=== PATIENT | female | born 1970 | race Caucasian/White ===

== ENCOUNTER → 2020-05-25 14:53 | Outpatient (CLI) | payer MEDICARE, SELFPAY ==
[2020-05-25 16:46] LABS: Alanine Aminotransferase 16 IU/L (<35); Albumin 3.8 g/dL (3.5-5.0); Albumin Globulin Ratio 1.4 (1.0-2.8); Alkaline Phosphatase 85 U/L (38-126); Aspartate Aminotransferase 22 IU/L (14-36); BUN Creatinine Ratio 16.7 (6-22); Bilirubin Total 0.4 mg/dL (0.2-1.3); Blood Urea Nitrogen 15 mg/dL (7-17); Calcium 9.1 mg/dL (8.4-10.2); Carbon Dioxide 29 mmol/L (22-32); Chloride 103 mmol/L (98-107); Estimated Glomerular Filt Rate > 60.0 mL/min (>60); Globulin 2.8 g/dL (1.7-4.1); Glucose 85 mg/dL (70-100); HEMOLYSIS < 15 (0-50); Potassium 3.9 mmol/L (3.4-5.1); Sodium 138 mmol/L (137-145); Total Protein 6.6 g/dL (6.3-8.2)
[2020-05-25 17:05] LABS: Free T4, Direct Thyroxine 0.93 ng/dL (0.78-2.19)
[2020-05-25 17:19] LABS: Thyroid Stimulating Hormone 1.67 uIU/mL (0.47-4.68)
[2020-05-28 10:09] LABS: Lamotrigine Lamictal 1.4 ug/mL (2.0-20.0)
== END ==
PROVIDERS: Referring Provider Psychiatry & Neurology Psychiatry; Visit Provider Psychiatry & Neurology Psychiatry
DX: F31.10 Bipolar disorder, current episode manic without psychotic features, unspecified (principal)
CPT/HCPCS: 36415; 80053; 80175; 84439; 84443

== ENCOUNTER → 2022-12-12 15:14 | Outpatient (CLI) | payer MEDICARE, SELFPAY | PROVIDERS: PCP Internal Medicine; Referring Provider Psychiatry & Neurology Psychiatry; Visit Provider Psychiatry & Neurology Psychiatry | DX: Z79.899 Other long term (current) drug therapy (principal) | CPT/HCPCS: 93005 ==

== ENCOUNTER → 2023-06-04 13:36 | Outpatient (CLI) | payer MEDICARE, MEDICAID, SELFPAY | PROVIDERS: PCP Internal Medicine; Referring Provider Psychiatry & Neurology Psychiatry; Visit Provider Psychiatry & Neurology Psychiatry | DX: Z79.899 Other long term (current) drug therapy (principal); F31.10 Bipolar disorder, current episode manic without psychotic features, unspecified; F43.10 Post-traumatic stress disorder, unspecified; F41.9 Anxiety disorder, unspecified | CPT/HCPCS: 93005; 99214 ==

== ENCOUNTER → 2025-03-16 12:20 | Outpatient (CLI) | payer MEDICARE, MEDICAID, SELFPAY ==
[2025-03-16 12:56] LABS: Add Manual Diff / Slide Review NO; Hematocrit 42.4 % (36-46); Hemoglobin 14.8 g/dL (12.0-16.0); Lymphocytes Absolute Auto 1000 /uL (1100-4500); Mean Corpuscular HGB Conc 34.9 % (30-36); Mean Corpuscular Hemoglobin 34.1 PG (26-34); Mean Corpuscular Volume 97.7 fL (80-100); Platelet Count 257 X10^3/uL (150-400)
[2025-03-16 13:02] LABS: Hemoglobin A1C% w Est Avg Glu 4.8 % (4.0-6.0)
[2025-03-16 13:21] LABS: Alanine Aminotransferase 14 IU/L (<35); Albumin 4.3 g/dL (3.5-5.0); Albumin Globulin Ratio 1.8 (1.0-2.8); Alkaline Phosphatase 84 U/L (38-126); Blood Urea Nitrogen 16 mg/dL (7-17); Calcium 9.6 mg/dL (8.4-10.2); Carbon Dioxide 25 mmol/L (22-32); Chloride 104 mmol/L (98-107); Estimated Glomerular Filt Rate > 60 mL/min (>60); Globulin 2.4 g/dL (1.7-4.1); Glucose 102 mg/dL (70-99); HEMOLYSIS < 15 (0-50); Potassium 4.3 mmol/L (3.4-5.1); Sodium 137 mmol/L (137-145); Total Protein 6.7 g/dL (6.3-8.2)
--- NOTE | 2025-03-16 13:40 | EKG_ITS ---
[address] [address] Test Date: 2025-03-16 Pat Name: Columba Zamarripa Department: 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
[2025-03-16 13:48] LABS: TSH w/ Reflex to FT4 2.33 uIU/mL (0.47-4.68)
[2025-03-19 11:36] LABS: Lamotrigine Lamictal 4.3 ug/mL (2.0-20.0)
== END ==
PROVIDERS: PCP Internal Medicine; Referring Provider Psychiatry & Neurology Psychiatry; Visit Provider Psychiatry & Neurology Psychiatry
DX: F31.10 Bipolar disorder, current episode manic without psychotic features, unspecified (principal); Z79.899 Other long term (current) drug therapy
CPT/HCPCS: 36415; 80053; 80175; 83036; 84443; 85025; 93005; 99214